=== PATIENT | male | born 1980 | race Caucasian/White ===

== ENCOUNTER 2022-05-01 13:50 | Emergency (ER) | payer OTHER ==
[2022-05-01] MEDS ORDERED: MEDROL DOSEPAK 24 MG PO (16:51)
[2022-05-01] MEDS ORDERED: IBUPROFEN600 MG PO (16:51)
[2022-05-01] MEDS ORDERED: NORFLEX 100 MG100 MG PO (16:51)
== END 2022-05-01 17:00 | disposition home or self-care (01) ==
LOC: ER1 13:50
DX: M54.42 Lumbago with sciatica, left side (principal); F17.210 Nicotine dependence, cigarettes, uncomplicated
CPT/HCPCS: 72100; 96372; 99283; J1100